=== PATIENT | male | born 1950 | race Caucasian/White ===

== ENCOUNTER → 2017-11-05 | Outpatient (CLI) | payer MEDICARE ==
[~2017-11-05] MED LIST: AEC81 PO; ALBUTEROL SULFATE 0.083% 2.5 MG/3 ML INH IH ONE; ATOR10 PO; GEMF600T4 PO; GLIP1TAB6 PO; HUM10VIA6 SQ; INSU10VI4 SQ; MELO-106 PO; METO25TA6 PO; QUIN20TA26 PO
== END | disposition home or self-care (01) ==
LOC: RESP 12:44
PROVIDERS: ATTEND Internal Medicine Cardiovascular Disease
DX: R06.00 Dyspnea, unspecified (principal)
CPT/HCPCS: 94060; 94727; 94729

== ENCOUNTER 2020-04-19 12:31 | Inpatient (IN) | payer MEDICARE ==
[~2020-04-19] VITALS: Ht 175.3 cm; Wt 141.1 kg
[~2020-04-19 12:31] MED LIST changes: -ALBUTEROL SULFATE 0.083% 2.5 MG/3 ML INH IH ONE; -GEMF600T4 PO; +GEMF600T89 PO; +INSU100V33 SQ; -INSU10VI4 SQ
[2020-04-19 13:12] LABS: APPEARANCE,URINE Clear (CLEAR); BILIRUBIN,URINE Negative (NEGATIVE); COLOR,URINE Yellow (YELLOW); GLUCOSE, URINE (UA) >=1000 mg/dL (NEGATIVE); KETONES,URINE Negative (NEGATIVE); LEUKOCYTE ESTERASE ,URINE Negative (NEGATIVE); NITRATE,URINE Negative (NEGATIVE); OCCULT BLOOD,URINE Negative (NEGATIVE); PROTEIN,URINE Negative (NEGATIVE); UROBILINOGEN,URINE 0.2 mg/dL (0.2-1.0)
[2020-04-19 13:32] LABS: BACTERIA,URINE None Seen /HPF (None Seen); RBC,URINE None Seen /HPF (0-1); WBC,URINE None Seen /HPF (0-1)
[2020-04-19 13:33] LABS: SQUAMOUS EPITHELIAL CELL,UR 0-2 /HPF (0-2)
[2020-04-19 13:53] LABS: BASOPHILS % (AUTO) 0.1 % (0.0-5.0); EOSINOPHILS % (AUTO) 1.1 % (0.0-8.0); HEMATOCRIT 36.4 % (42-54); LYMPHOCYTES % (AUTO) 15.7 % (21.0-51.0); MEAN CORPUSCULAR HEMOGLOBIN 31.4 pg (27.0-33.0); MEAN CORPUSCULAR HGB CONC 32.7 g/dL (32.0-36.0); MONOCYTES % (AUTO) 8.9 % (3.0-13.0); NEUTROPHILS % (AUTO) 73.6 % (40.0-77.0); PLATELET COUNT (AUTO) 223 K/uL (130-400); RED BLOOD CELL COUNT(AUTO) 3.79 MIL/uL (4.50-6.20); RED CELL DISTRIBUTION WIDTH 15.7 % (11.0-15.5); WHITE BLOOD COUNT (AUTO) 8.9 K/uL (4.8-10.8)
[2020-04-19 14:07] LABS: INR 1.04 (0.85-1.15); PROTHROMBIN TIME 11.3 SEC (9.6-11.6)
[2020-04-19 14:08] LABS: PARTIAL THROMBOPLASTIN TIME 23.3 SEC (26.3-35.5)
[2020-04-19 14:13] LABS: BILIRUBIN,TOTAL 0.7 mg/dL (0.2-1.0); CREATININE 2.1 mg/dL (0.5-1.5); POTASSIUM 4.3 mmol/L (3.5-5.1); TOTAL PROTEIN, SERUM 7.1 g/dL (6.0-8.3)
[2020-04-19] MEDS ORDERED: 0.9%NACL 1000ML 1,000 ML IV ONE (15:52)
[2020-04-19] MEDS ORDERED: DEXTROSE 50%-WATER 50 ML DISP.SYRIN IV PRN (17:45)
[2020-04-19] MEDS ORDERED: GLUCAGON 1MG KIT 1 MG ML IM PRN (17:45)
[2020-04-19] MEDS: 0.9%NACL 1000ML 1,000 ML IV SCH (17:45)
[2020-04-19] MEDS: INSULIN GLARGINE 100 UNITS/ML 10 ML VIAL SQ SCH (21:00)
[2020-04-19] MEDS ORDERED: INSULIN R PO SS2 SQ SCH (21:00)
[2020-04-19] MEDS: HUMALOG PO SS2 SQ SCH (21:00)
[2020-04-19 23:43] VITALS: BP 117/66
[2020-04-20] VITALS (7 sets, daily range): BP systolic 93–134; BP diastolic 53–72
[2020-04-20 02:17] LABS: HEMATOCRIT 33.5 % (42-54); MEAN CORPUSCULAR HEMOGLOBIN 31.5 pg (27.0-33.0); MEAN CORPUSCULAR HGB CONC 33.4 g/dL (32.0-36.0); MEAN CORPUSCULAR VOLUME 94.1 fL (79-99); RED BLOOD CELL COUNT(AUTO) 3.56 MIL/uL (4.50-6.20); RED CELL DISTRIBUTION WIDTH 15.3 % (11.0-15.5); WHITE BLOOD COUNT (AUTO) 7.9 K/uL (4.8-10.8)
[2020-04-20 02:42] LABS: ALBUMIN 2.9 g/dL (3.5-5.0); BILIRUBIN,TOTAL 0.5 mg/dL (0.2-1.0); CREATININE 1.9 mg/dL (0.5-1.5); MAGNESIUM 1.6 mg/dL (1.80-2.40); PHOSPHORUS 4.1 mg/dL (2.5-4.9); POTASSIUM 3.9 mmol/L (3.5-5.1); TOTAL PROTEIN, SERUM 6.8 g/dL (6.0-8.3)
[2020-04-20 02:49] LABS: CREATINE KINASE, TOTAL 87 U/L (21-232); MYOGLOBIN 190 ng/mL (10-92); TROPONIN I < 0.04 ng/mL (0.00-0.06)
[2020-04-20] MEDS: INSULIN GLARGINE 100 UNITS/ML 10 ML VIAL SQ SCH ×2 (10:44→23:43)
[2020-04-20] MEDS: HUMALOG PO SS2 SQ SCH ×4 (11:30→23:42)
[2020-04-20] MEDS: 0.9%NACL 1000ML 1,000 ML IV SCH (13:00)
[2020-04-20] MEDS: GEMFIBROZIL 600 MG TABLET PO SCH (23:40)
[2020-04-21] VITALS: BP 136/56
[2020-04-21 02:00] VITALS: BP 120/73
[2020-04-21] MEDS ORDERED: METOPROLOL TARTRATE 25 MG TAB PO SCH ×2 (02:45→09:00)
[2020-04-21] MEDS ORDERED: METOPROLOL TARTRATE 25 MG TAB ONE (02:48)
[2020-04-21 03:00] VITALS: BP 99/32
[2020-04-21] MEDS: 0.9%NACL 1000ML 1,000 ML IV SCH (03:00)
[2020-04-21 04:15] VITALS: BP 106/65
[2020-04-21] MEDS: GEMFIBROZIL 600 MG TABLET PO SCH (08:43)
[2020-04-21] MEDS: HUMALOG PO SS2 SQ SCH ×3 (08:47→16:30)
[2020-04-21] MEDS: INSULIN GLARGINE 100 UNITS/ML 10 ML VIAL SQ SCH (08:55)
[2020-04-21] MEDS ORDERED: QUINAPRIL HCL 20 MG PO SCH ×2 (09:00)
[2020-04-21] MEDS ORDERED: ATORVASTATIN 10 MG TABLET PO SCH (09:00)
[2020-04-21] MEDS ORDERED: ASPIRIN 81 MG EC TAB PO SCH (09:00)
[2020-04-21 12:00] VITALS: BP 92/47
[2020-04-21 16:00] VITALS: BP 109/65
== END 2020-04-21 20:00 | disposition home or self-care (01) | DRG 683 ==
LOC: EDH 12:31 → EDHIP 16:45 → 4CH 22:37 → 4AH 23:20
PROVIDERS: ADMIT Family Medicine; ATTEND Family Medicine
DX: N17.9 Acute kidney failure, unspecified (principal); I13.0 Hypertensive heart and chronic kidney disease with heart failure and stage 1 through stage 4 chronic kidney disease, or unspecified chronic kidney disease; Z68.42 Body mass index [BMI] 45.0-49.9, adult; M84.48XA Pathological fracture, other site, initial encounter for fracture; I50.30 Unspecified diastolic (congestive) heart failure; R55 Syncope and collapse; I49.3 Ventricular premature depolarization; E11.22 Type 2 diabetes mellitus with diabetic chronic kidney disease; E66.01 Morbid (severe) obesity due to excess calories; N18.30 Chronic kidney disease, stage 3 unspecified; E78.5 Hyperlipidemia, unspecified; E83.42 Hypomagnesemia; G47.33 Obstructive sleep apnea (adult) (pediatric); I25.10 Atherosclerotic heart disease of native coronary artery without angina pectoris; W18.30XA Fall on same level, unspecified, initial encounter; M25.551 Pain in right hip; I45.10 Unspecified right bundle-branch block; I87.2 Venous insufficiency (chronic) (peripheral); I87.8 Other specified disorders of veins; Z79.4 Long term (current) use of insulin; Z87.891 Personal history of nicotine dependence; Y93.89 Activity, other specified; Y92.89 Other specified places as the place of occurrence of the external cause; Y99.8 Other external cause status
CPT/HCPCS: 36415; 70450; 70544; 70551; 71045; 72125; 72192; 74176; 80053; 81001; 82550; 82948; 83735; 83874; 83880; 84100; 84484; 84550; 85025; 85027; 85378; 85610; 85730; 93005; 93306; 93880; 93970; 97039; G0378; J1815; J2405; J7030

== ENCOUNTER → 2022-09-13 | Outpatient (CLI) | payer MEDICARE ==
[~2022-09-13] MED LIST changes: +QUIN20TA PO; -QUIN20TA26 PO
[2022-09-13 12:29] LABS: CREATININE 1.3 mg/dL (0.5-1.5); MAGNESIUM 1.7 mg/dL (1.80-2.40); POTASSIUM 4.7 mmol/L (3.5-5.1)
== END | disposition home or self-care (01) ==
LOC: LAB 10:08
PROVIDERS: ATTEND Internal Medicine Cardiovascular Disease
DX: I10 Essential (primary) hypertension (principal); E78.5 Hyperlipidemia, unspecified
CPT/HCPCS: 36415; 80048; 83735

== ENCOUNTER → 2022-09-27 | Outpatient (CLI) | payer MEDICARE | END | disposition home or self-care (01) | LOC: LAB 11:20 | PROVIDERS: ATTEND Internal Medicine Cardiovascular Disease | DX: E11.9 Type 2 diabetes mellitus without complications (principal) | CPT/HCPCS: 36415; 83735 ==